=== PATIENT | male | born 1960 | race Caucasian/White ===

== ENCOUNTER 2022-11-13 06:07 | Observation (INO) ==
--- NOTE | 2022-10-14 14:40 | PAT Medication Instructions ---
Medication Instructions Date of Service October 14, 2022 Home Medications acetaminophen 500 mg tablet 500 mg PO Q6H atorvastatin 40 mg tablet 40 mg PO HS gabapentin 300 mg capsule 300 mg PO TID tadalafil 5 mg tablet 5 mg PO DAILY PRN Erectile Dysfunction DO NOT take the morning of surgery tadalafil 5 mg tablet 5 mg PO DAILY PRN Erectile Dysfunction Take morning of surgery With a small sip of water, OTHERWISE NOTHING TO EAT OR DRINK AFTER MIDNIGHT: acetaminophen 500 mg tablet 500 mg PO Q6H (if needed) gabapentin 300 mg capsule 300 mg PO TID Take evening before surgery acetaminophen 500 mg tablet 500 mg PO Q6H (if needed) atorvastatin 40 mg tablet 40 mg PO HS gabapentin 300 mg capsule 300 mg PO TID Other Notes If you have any questions please call us at [phone] or [phone] or [phone] or [phone]
--- NOTE | 2022-10-31 11:48 | Anesthesiology Consultation ---
Date of Service October 31, 2022 Assessment & Plan (1) Encounter for pre-operative examination: - COVID screening: Per assessment on 10/31: No known COVID-19 positive contacts or current COVID-19 related symptoms. Travel screen negative. Patient vaccinated. At surgeon discretion if preop Covid testing being done. - Preop CXR: CXR done 10/31/22 showed "a 7 mm nodular density within the left midlung zone is likely due to the overlapping ribs. Follow-up shallow oblique views of the chest are recommended to exclude the less likely possibility of a pulmonary nodule. This report was called/faxed to the referring physician following dictation." Per Lisset at surgeon's office, their office will have follow-up xray imaging done at [facility] in near future- awaiting x-ray report. Chart Review Chart Review: Patient seen in Pre Admission Testing Teaching & Discussion Pre-Anesthesia Teaching/Discussion Notes: Instructed NPO after midnight before surgery,except medications with 15 cc of water. Medication instructions provided according to the PAT guidelines. History Surgery Operation Date: 11/13/22 07:45 Proposed Procedures p C6-C7 Anterior Cervical Discectomy and Fusion, Spinal Cord Monitoring - Devante Bobo DO Height/Weight Height: 6 ft Weight: 97.522 kg Allergies Allergy/AdvReac Type Severity Reaction Status Date / Time Iodinated Contrast Media Allergy Mild Rash Verified 10/06/22 13:41 P-phenylenediamine Allergy Mild Rash Uncoded 10/06/22 13:43 Medications Home Medications Medication Instructions Recorded Confirmed Last Taken acetaminophen 500 mg tablet 500 mg PO Q6H 10/06/22 10/06/22 Unknown atorvastatin 40 mg tablet 40 mg PO HS 10/06/22 10/06/22 Unknown tadalafil 5 mg tablet 5 mg PO DAILY PRN Erectile 10/06/22 10/06/22 Unknown Dysfunction Past Medical History Medical History Hyperlipidemia Neuropathy LUE + fingers Exercise / Class Metabolic Activity II 4-5 Yardwork/Stairs/Walk up hill Past Surgical History Surgical History History of cholecystectomy History of colonoscopy Hx of cervical spine surgery + hardware Past Anesthesia History No Hx of Anesthesia Complications and No Family Hx of Anesthesia Complications History of PONV No Hx of PONV and No Hx of Motion Sickness Social History Smoking Status: Light tobacco smoker tobacco type: cigars Do You Dip or Chew Tobacco: No Hx Alcohol Use: Yes Alcohol type: beer alcohol intake frequency: a few times a week Hx Substance Use: No substance use type: does not use Review of Systems Patient denies chest pain, shortness of breath, dyspnea on exertion, fever, chills, cough, wheezing, palpitations. Physical Exam Vital Signs VITALS BP 115/75 P 68 TEMP 98.2 SP02 97%RA RESP 16 PHYSICAL Full cervical extension range of motion. Full TMJ range of motion. TMD 3.5 finger breaths Mallampati Score 2 Dentition: upper partial Lungs: clear throughout to auscultation Cardiac: regular rate and rhythm, no murmurs noted Spine: normal Carotid arteries: negative bruit Extremities: no edema Lab Results Anesthesia Preop Results Results Anesthesia Widget: WBC 7.15 K/ul (4.8-10.8) 10/31/22 Hgb 15.5 g/dl (14.0-18.0) 10/31/22 Hct 45.2 % (42.0-52.0) 10/31/22 Plt 225 K/uL (130-400) 10/31/22 Na 139 mmol/L (136-145) 10/31/22 K 3.8 mmol/L (3.5-5.1) 10/31/22 Cl 108 mmol/L (98-107) H 10/31/22 CO2 24 mmol/L (21-32) 10/31/22 BUN 17 mg/dl (6-23) 10/31/22 Creat 0.86 mg/dl (0.6-1.4) 10/31/22 Glucose Level 99 mg/dl (70-99(Fasting)) 10/31/22 PT 11.4 Seconds (9.0-12.0) 10/31/22 PTT 27.9 Seconds (21.0-31.0) 10/31/22 INR 1.1 (0.9-1.1) 10/31/22 Urine Color Yellow 10/31/22 Urine Appearance Clear (Clear) 10/31/22 Urine pH 5.0 (4.5-7.5) 10/31/22 Urine Specific [place] 1.023 (1.000-1.030) 10/31/22 Urine Protein Negative (Negative) 10/31/22 Urine Glucose (UA) Negative (Negative) 10/31/22 Urine Ketones Trace (Negative) H 10/31/22 Urine Blood Negative (Negative) 10/31/22 Urine Nitrite Negative (Negative) 10/31/22 Urine Bilirubin Negative (Negative) 10/31/22 Urine Urobilinogen Negative (Negative) 10/31/22 Urine Leukocyte Esterase Negative (Negative) 10/31/22 Blood Type O Positive 10/31/22 Antibody Screen NEGATIVE 10/31/22 Testing Electrocardiogram Date: 10/31/22 Findings: + SB @ (58) Chest X-Ray Date: 10/31/22 FINDINGS: No pneumothorax. No pleural effusions. The cardiac silhouette is top normal in size. There are calcifications within the aortic knob. No focal lung consolidations to suggest a pneumonia. No evidence for pulmonary edema. A 1.4 cm linear density at the right lung apex is likely external to the patient. A 7 mm nodular density within the left midlung zone is not confirmed on the lateral view. This may be associated with the overlying ribs. IMPRESSION: A 7 mm nodular density within the left midlung zone is likely due to the overlapping ribs. Follow-up shallow oblique views of the chest are recommended to exclude the less likely possibility of a pulmonary nodule. This report was called/faxed to the referring physician following dictation. COVID-19 Risk Screen Screening Information COVID-19 Screen Date: 10/31/22 Exposure 21 Days Family/Household +COVID Last 21 Days: No Exposure 10 Days Any COVID Exposure Last 10 Days: No Symptoms Last 10 Days Experienced COVID Sx Last 10 Days: No + COVID 0-90 Days COVID + in Last 0-90 Days: No
[~2022-11-13 06:07] MED LIST: ACETAMINOPHEN 500 MG TAB PO SCH; CeleBREX 200 MG CAP PO SCH; GABAPENTIN 600 MG DOSE PO SCH; LR 15ML/HR IV SCH; ceFAZolin 2000MG 2,000 MG/15 ML SYR IV SCH
[2022-11-13] MEDS ORDERED: BUPIVACAINE/EPINEPHRINE 0.25% 1:200,000 30 ML VIAL ONE (07:03)
[2022-11-13] MEDS ORDERED: ceFAZolin 330 MG/ML 1 GM VIAL ONE (07:04)
[2022-11-13] MEDS ORDERED: ROCURONIUM BROMIDE 10 MG/ML 5 ML VIAL IV ONE (07:13)
[2022-11-13] MEDS ORDERED: LIDOCAINE 2% MPF LOCAL 5 ML VIAL ONE (07:13)
[2022-11-13] MEDS ORDERED: ONDANSETRON INJ 2 MG/ML 2 ML VIAL ONE (07:13)
[2022-11-13] MEDS ORDERED: PROPOFOL IV EMULSION 10 MG/ML 20 ML VIAL IV ONE (07:13)
[2022-11-13] MEDS ORDERED: DEXAMETHASONE SOD INJ 4 MG/ML VIAL ONE (07:13)
[2022-11-13] MEDS ORDERED: MIDAZOLAM HCL 1 MG/ML 2ML VIAL ONE (07:14)
[2022-11-13] MEDS ORDERED: fentaNYL citrate PF 100 MCG/2 ML VIAL ONE (07:14)
--- NOTE | 2022-11-13 07:39 | History & Physical Bridge Note ---
Date of Service November 13, 2022 History & Physical Bridge Note I have examined the patient, reviewed the History & Physical and in the interval since the performance of the History & Physical I have noted the following changes of clinical significance: no changes noted
--- NOTE | 2022-11-13 07:42 | History & Physical Report ---
Date of Service November 13, 2022 Assessment & Plan (1) Cervical stenosis of spinal canal: Plan: C6-C7 anterior cervical discectomy and fusion History of Present Illness Chief Complaint: Neck and arm pain Primary Care Provider: Vandana Castro DO This is a 58-year-old male who presents with chronic persistent neck and arm symptoms after failing course of nonoperative care is here for surgical invention. Allergies Allergy/AdvReac Type Severity Reaction Status Date / Time Iodinated Contrast Media Allergy Mild Rash, Verified 11/13/22 06:54 sweats, nausea, lightheaded P-phenylenediamine Allergy Mild Rash Uncoded 11/13/22 06:54 Home Medications Medication Instructions Recorded Confirmed Type acetaminophen 500 mg tablet 500 mg PO Q6H 10/06/22 11/13/22 History atorvastatin 40 mg tablet 40 mg PO HS 10/06/22 11/13/22 History tadalafil 5 mg tablet 5 mg PO DAILY PRN Erectile 10/06/22 11/13/22 History Dysfunction Past Med/Surg History Medical History Hyperlipidemia Neuropathy LUE + fingers Surgical History History of cholecystectomy History of colonoscopy Hx of cervical spine surgery + hardware Social History Smoking Status: Light tobacco smoker Second Hand Exposure: No; Do You Dip or Chew Tobacco: No; Tobacco Cessation Education Requested by Patient: No Hx Alcohol Use: Yes Alcohol type: beer Hx Substance Use: No Preferred Language: Taiwanese Communication Ability: Effective 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
[2022-11-13] MEDS ORDERED: fentaNYL citrate PF 100 MCG/2 ML VIAL IV PRN (08:05)
[2022-11-13] MEDS ORDERED: ONDANSETRON INJ 2 MG/ML 2 ML VIAL IV PRN ×2 (08:05→11:33)
[2022-11-13] MEDS ORDERED: PROMETHAZINE HCL 12.5 MG in SODIUM CHLORIDE 0.9% 50 ML IV PRN ×2 (08:05→11:33)
[2022-11-13] MEDS ORDERED: ePHEDrine sulfate 50 MG/ML AMP IV PRN (08:05)
[2022-11-13] MEDS ORDERED: ATROPINE SULFATE 0.1 MG/ML 10ML SYR IV PRN (08:05)
[2022-11-13] MEDS ORDERED: NALOXONE HCL 0.4 MG/1 ML VIAL/CARP IV PRN ×2 (08:05→11:33)
[2022-11-13] MEDS ORDERED: REMIFENTANIL HCL 1 MG VIAL IV ONE (08:20)
[2022-11-13] MEDS ORDERED: KETAMINE 50 MG/5 ML SYRINGE ONE (08:23)
[2022-11-13] MEDS ORDERED: FLOSEAL HEMOSTATIC MATRIX 10ML TOP ONE (08:29)
[2022-11-13] MEDS ORDERED: SUCCINYLCHOLINE CHLORIDE 20 MG/ML 10 ML VIAL IV ONE (08:36)
[2022-11-13] MEDS ORDERED: SUGAMMADEX SODIUM 200 MG/2 ML VIAL IV ONE (08:44)
--- NOTE | 2022-11-13 08:57 | Operative Report ---
Post Operative Report Pre & Post Diagnosis Operation Date: 11/13/22 07:45 Pre-Op Diagnosis: Cervical radiculopathy Post-Op Diagnosis: Same I identified the patient and participated in the time-out.: Yes Procedure Operation Date: 11/13/22 07:45 Actual Procedures #1 anterior cervical discectomy with bilateral foraminotomies C6-C7. #2 anterior cervical disc at C6-C7. #3 placement of Spira 7 mm cage filled with I factor C6-C7. #4 placement of K2 M plate and screws across C6-C7. Surgeon Devante Bobo, Manager Animation Coleen Galvan Estimated Blood Loss 10 Findings Consistent with Post-Op Diagnosis Specimens None Indications This is a 62-year-old male who presents with above-mentioned diagnosis after failed extensive course of nonoperative care is here for the above-mentioned procedure. Description of Procedure Patient was met with identified informed consent obtained. 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 All bony prominences well-padded eyes inspected to ensure no external pressure placed upon the. This point the anterior cervical spine was prepped and draped in a sterile fashion. With the assistance of fluoroscopy identified the C6-C7 level and a transverse incision was placed overlying this region. Blunt dissection with the assistance of Bovie cautery to form down to and exposing the anterior cervical spine from C6-C7. A self-retaining retractors placed. Then performed a complete discectomy of C6-C7 out to the uncovertebral joints bilaterally. Gilberts distracting pins were utilized to assist in visualization. Removed all posterior annular fibers longitudinal ligament bilateral foraminotomies performed. Endplates burred to subcortical bleeding bone and a 7 mm Spira cage filled with I factor tapped in position. Distracting apparatus was removed and a K2 M plate and screws applied with the assistance of fluoroscopy. The incision was then copiously irrigated explored to ensure no damage to surrounding structures or remaining bleeding. 10 round MIA drain inserted. The incision was then closed with 2 Vicryl in the fascia and 4 Monocryl for final skin closure. Steri-Strips and sterile dressing placed. Patient awakened and taken to PACU in stable condition. Please note spinal cord monitoring was utilized at the procedure no changes noted. Lastly Coleen Galvan was present at the entire surgeon while the patient positioning complex portion of the surgery and final skin closure. I attest to the content of the Intraoperative Record and any orders documented therein. Any exceptions are noted below.
[2022-11-13] MEDS: HYDROmorphone INJ 1 MG/ML SYRINGE IV PRN ×8 (09:30→10:20)
--- NOTE | 2022-11-13 09:49 | Fluoroscopy Report ---
FL cervical 2-3V CLINICAL HISTORY: ACDF C6-C7 COMPARISON STUDY: None. FLUOROSCOPY TIME: 21 seconds FLUOROSCOPY IMAGES: 3 Ka,r: 7.9 mGy FINDINGS: Difficult evaluation of the cervical spine levels due to the patient's overlapping shoulder s. There is anterior cervical discectomy and fusion at the lower cervical spine. The exact location i s difficult to assess on this study but could be at C6-C7 or C7-T1. Prior ACDF within the upper cervi ludivina spine is noted. The endotracheal tube is partially visualized. Surgical sponge anterior to the lo wer cervical ACDF is also noted. IMPRESSION: There is anterior cervical discectomy and fusion at the lower cervical spine. The exact l ocation is difficult to assess on this study but could be at C6-C7 or C7-T1. Please correlate with th e operative report. This report was called/faxed to the surgeon following dictation. ACT 112: Negative or not required by law. Electronically signed by: Zi Goodman M.D. 11/13/2022 9:47 AM
--- NOTE | 2022-11-13 10:27 | Anesthesiology Progress Note ---
Date of Service November 13, 2022 Anesthesia Post Procedure Vital Signs Vital Signs: Temp Pulse Resp BP Pulse Ox O2 Del Method O2 Flow Rate 11/13/22 10:20 67 17 150/98 H 98 Nasal Cannula 2 11/13/22 10:10 36.6 C 59 L 14 151/97 H 97 Nasal Cannula 2 11/13/22 10:00 61 16 148/96 H 95 Nasal Cannula 2 11/13/22 09:50 65 15 158/95 H 92 Room Air 11/13/22 09:40 71 12 160/106 H 92 Room Air 11/13/22 09:30 72 15 163/103 H 94 Room Air 11/13/22 09:20 77 15 148/105 H 95 Room Air 11/13/22 09:14 36.2 C L 95 H 21 160/106 H 97 Room Air 11/13/22 06:56 37 C 60 18 146/86 H 96 Room Air Pain Intensity Posterior Neck: Pain Intensity: 4 Transfer of Care Handoff Completed per policy Notes Mental Status: alert / awake / arousable Patient Amnestic to Procedure: Yes Nausea / Vomiting: adequately controlled Pain: adequately controlled Airway Patency, RR, SpO2: stable & adequate BP & HR: stable & adequate Hydration State: stable & adequate Anesthetic Complications: no major complications apparent
[2022-11-13] MEDS ORDERED: hydrOXYzine HCl 25 MG TAB PO PRN (11:33)
[2022-11-13] MEDS ORDERED: ONDANSETRON 4 MG OD TAB PO PRN (11:33)
[2022-11-13] MEDS ORDERED: bisacodyL 10 MG SUPP PR PRN (11:33)
[2022-11-13] MEDS ORDERED: LORazepam 2 MG/1 ML VIAL IV PRN (11:33)
[2022-11-13] MEDS ORDERED: ALUMINUM/MAGNESIUM SUSP 30 ML UDC PO PRN (11:33)
[2022-11-13] MEDS ORDERED: ACETAMINOPHEN 500 MG TAB PO PRN (11:33)
[2022-11-13] MEDS ORDERED: diphenhydrAMINE Capsule 25 MG CAP PO PRN (11:33)
[2022-11-13] MEDS ORDERED: HYDROmorphone INJ 1 MG/ML SYRINGE IV PRN (11:33)
[2022-11-13] MEDS ORDERED: RACEPINEPHRINE 2.25% NEBU SOLN 0.5 ML VIAL INH PRN (11:33)
[2022-11-13] MEDS ORDERED: LORazepam 0.5 MG TAB PO PRN (11:33)
[2022-11-13] MEDS ORDERED: dexAMETHasone 8 MG in SYRINGE 0 ML IV PRN (11:33)
[2022-11-13] MEDS ORDERED: traMADol HCL 50 MG TABLET PO PRN (11:33)
[2022-11-13] MEDS ORDERED: SOD PHOSPHATE/SOD BIPHOSPHATE ENEMA 132 ML BTL PR PRN (11:33)
[2022-11-13] MEDS ORDERED: FAMOTIDINE 20 MG TAB PO PRN (11:33)
[2022-11-13] MEDS ORDERED: DO NOT ADMINISTER PNEUMOCOCCAL VACCINE PRN (11:33)
[2022-11-13] MEDS ORDERED: DO NOT ADMINISTER FLU VACCINE PRN (11:33)
[2022-11-13] MEDS ORDERED: HYDROmorphone INJ 0.5 MG/0.5 ML SYR IV PRN (11:33)
[2022-11-13] MEDS ORDERED: MAGNESIUM HYDROXIDE SUSP 30 ML UDC PO PRN (11:33)
[2022-11-13] MEDS ORDERED: METOCLOPRAMIDE HCL INJ 5 MG/ML 2 ML VIAL IV PRN (11:33)
[2022-11-13] MEDS ORDERED: ACETAMINOPHEN 1,000 MG/100 ML VIAL IV PRN (11:33)
[2022-11-13] MEDS: LACTATED RINGER'S 1,000 ML IV SCH ×2 (12:11→19:12)
--- NOTE | 2022-11-13 12:17 | Hospitalist Consultation ---
Date of Consultation November 13, 2022 Assessment & Plan (1) S/P spinal surgery: This is a 62yo M with a PMH of prediabetes, hyperlipidemia, BPH and other medical problems listed below who is POD#0 s/p anterior cervical discectomy with bilateral foraminotomies C6-C7 by Dr. Bobo. POD#0 s/p anterior cervical discectomy with bilateral foraminotomies C6-C7 by Dr. Bobo Per ortho for pain control, wound care, anticoagulation and activities Monitor H&H (preop hgb 15.5, EBL 10ml), continue incentive spirometry, PT/OT when appropriate (2) Hyperlipidemia: Continue statin (3) Prediabetes: A1c 6.1 in October 2022, losing weight with diet and exercise, carb consistent diet (4) BPH (benign prostatic hyperplasia): Asymptomatic, following with urology and not taking any medications at this time PCP: Gloria ([facility]) Dispo: Per primary service Patient seen in collaboration with Dr. Jon. Please see addendum. I spent a total of 45 minutes coordinating, documenting, and providing care for this patient excluding time spent in the performance of separately billed services. Supervising Physician Co-Signing Physician Notes Patient was seen and examined independently. Chart reviewed. Case discussed with FEI. Patient also noted to have elevated blood pressures, per nursing patient with controlled pain. No prior history of hypertension and not on anti hypertensives. Will order PRN hydralazine for now and monitor. May need initiation of antihypertensives. History of Present Illness Reason for Consultation: post op med mgmt Attending Physician: Devante Bobo, DO History of Present Illness This is a 62yo M with a PMH of prediabetes, hyperlipidemia, BPH and other medical problems listed below who is POD#0 s/p anterior cervical discectomy with bilateral foraminotomies C6-C7 by Dr. Bobo. Patient is feeling well postoperatively. Minimal surgical site discomfort. Denies any paresthesias or pain in bilateral upper extremities. Ambulating in the halls without issue. Tolerated liquid diet for lunch without issue. No fever, chills, lightheadedness, chest pain, shortness of breath, nausea, vomiting, abdominal pain, dysuria. Has not yet urinated postoperatively. Follows with primary care in [facility]. Allergies Allergy/AdvReac Type Severity Reaction Status Date / Time Iodinated Contrast Media Allergy Mild Rash, Verified 11/13/22 06:54 sweats, nausea, lightheaded P-phenylenediamine Allergy Mild Rash Uncoded 11/13/22 06:54 Home Medications Medication Instructions Recorded Confirmed Type acetaminophen 500 mg tablet 500 mg PO Q6H 10/06/22 11/13/22 History atorvastatin 40 mg tablet 40 mg PO HS 10/06/22 11/13/22 History tadalafil 5 mg tablet 5 mg PO DAILY PRN Erectile 10/06/22 11/13/22 History Dysfunction oxycodone 5 mg tablet 5 mg PO DAILY PRN pain #30 tabs 11/13/22 Rx tramadol 50 mg tablet 50 mg PO Q6H PRN pain, moderate 11/13/22 Rx #30 tabs Patient History Medical History BPH (benign prostatic hyperplasia) Hyperlipidemia Neuropathy LUE + fingers Prediabetes Surgical History History of cholecystectomy History of colonoscopy Hx of cervical spine surgery + hardware Family History Other Diabetes Social History (Updated 11/13/22 @ 13:09 by Marialuisa Brownlee PA-C) Smoking Status: Light tobacco smoker Tobacco Type: Cigars Cigarettes Per Day: 1 cigar daily; Second Hand Exposure: No; Do You Dip or Chew Tobacco: No; Tobacco Cessation Education Requested by Patient: No Hx Alcohol Use: Yes Alcohol type: beer Alcohol Intake Frequency: 2-3 x/Week Hx Substance Use: No Preferred Language: Trinidadian Communication Ability: Effective 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 Physical Exam Physical Exam: Gen: WD/WN, NAD, sitting in bedside chair but seen ambulating with a walker as well, A&Ox3 HEENT: Normocephalic, atraumatic, conjunctivae moist, sclerae anicteric, mucous membranes moist. + Anterior cervical dressing c/d/i, MIA drain without output Lung: Clear to Auscultation bilaterally, no wheezes/rales/rhonchi Heart: Regular rate, regular rhythm, no murmurs, rubs, or gallops Abdomen: Soft, NT, ND +BS x 4 Extremities: no edema Skin: Warm, no rash Results & Data Results & Data Vital Signs (Past 12 Hours) Vital Signs Temp Pulse Pulse Resp BP Pulse Ox O2 Del Method 11/13/22 12:02 36.7 C 52 L 16 149/83 H 93 Room Air 11/13/22 11:12 56 L 16 98 Nasal Cannula 11/13/22 11:30 36.4 C L 58 L 18 166/97 H 96 Room Air 11/13/22 11:15 Nasal Cannula 11/13/22 10:59 36.7 C 61 18 151/93 H 97 Nasal Cannula 11/13/22 10:30 60 15 140/94 98 Nasal Cannula 11/13/22 10:20 67 17 150/98 H 98 Nasal Cannula 11/13/22 10:10 36.6 C 59 L 14 151/97 H 97 Nasal Cannula 11/13/22 10:00 61 16 148/96 H 95 Nasal Cannula 11/13/22 09:50 65 15 158/95 H 92 Room Air 11/13/22 09:40 71 12 160/106 H 92 Room Air 11/13/22 09:30 72 15 163/103 H 94 Room Air 11/13/22 09:20 77 15 148/105 H 95 Room Air 11/13/22 09:14 36.2 C L 95 H 21 160/106 H 97 Room Air 11/13/22 06:56 37 C 60 18 146/86 H 96 Room Air O2 Flow Rate 11/13/22 12:02 11/13/22 11:12 2 11/13/22 11:30 11/13/22 11:15 1 11/13/22 10:59 1 11/13/22 10:30 2 11/13/22 10:20 2 11/13/22 10:10 2 11/13/22 10:00 2 11/13/22 09:50 11/13/22 09:40 11/13/22 09:30 11/13/22 09:20 11/13/22 09:14 11/13/22 06:56 Laboratory Results pre-op hgb 15.5 Diagnostic Findings Cervical Spine X-Ray 11/13/22 07:45 FL cervical 2-3V CLINICAL HISTORY: ACDF C6-C7 COMPARISON STUDY: None. FLUOROSCOPY TIME: 21 seconds FLUOROSCOPY IMAGES: 3 Ka,r: 7.9 mGy FINDINGS: Difficult evaluation of the cervical spine levels due to the patient's overlapping shoulders. There is anterior cervical discectomy and fusion at the lower cervical spine. The exact location is difficult to assess on this study but could be at C6-C7 or C7-T1. Prior ACDF within the upper cervical spine is noted. The endotracheal tube is partially visualized. Surgical sponge anterior to the lower cervical ACDF is also noted. IMPRESSION: There is anterior cervical discectomy and fusion at the lower cervical spine. The exact location is difficult to assess on this study but could be at C6-C7 or C7-T1. Please correlate with the operative report. This report was called/faxed to the surgeon following dictation. ACT 112: Negative or not required by law. Electronically signed by: Zi Goodman M.D. 11/13/2022 9:47 AM
[2022-11-13] MEDS: dexAMETHasone 6 MG in SYRINGE 0 ML IV SCH (13:35)
[2022-11-13] MEDS: ceFAZolin 2000MG 2,000 MG/15 ML SYR IV SCH ×2 (14:29→22:12)
[2022-11-13] MEDS: oxyCODONE HCL IR 5 MG TAB (IMMEDIATE RELEASE) PO PRN ×2 (17:51→22:12)
[2022-11-13] MEDS ORDERED: hydrALAZINE HCL 20 MG/ML VIAL IV ONE (18:39)
[2022-11-13] MEDS ORDERED: hydrALAZINE HCL 20 MG/ML VIAL IV PRN (20:53)
[2022-11-13] MEDS ORDERED: DOCUSATE SODIUM/SENNA 50/8.6MG TAB PO SCH (21:00)
[2022-11-13] MEDS ORDERED: ATORVASTATIN 40 MG TAB PO SCH (21:00)
[2022-11-14] MEDS: LACTATED RINGER'S 1,000 ML IV SCH (01:25)
[2022-11-14] MEDS ORDERED: POLYETHYLENE (MIRALAX) 17 GM PACK PO SCH (06:00)
--- NOTE | 2022-11-14 08:37 | Discharge Summary ---
Date of Service November 14, 2022 Admission HPI Per Admitting Provider This is a 58-year-old male who presents with chronic persistent neck and arm symptoms after failing course of nonoperative care is here for surgical invention. Admission Exam (Per Admitting) Constitutional WD/WN, vitals as above Eyes normal visual gonzalez by confrontation ENMT external ear and nose normal, oropharynx normal Neck normal visual inspection Right anterior cervical scar noted Limited range of motion of cervical spine with flexion and extension Respiratory normal respiratory effort Cardiovascular Extremities: normal capillary refill Gastrointestinal (Abdomen) normal bowel sounds, soft, nontender, no hepatosplenomegaly Musculoskeletal Spine: + limited cervical ROM and + pain with cervical ROM Extremities: extremities normal to inspection Skin no rashes, warm and dry Neurologic normal touch/pain/proprioception and moves all extremities Psychiatric A+Ox3, euthymic affect Eye Contact: good eye contact Discharge Data Consultations 11/13/22 11:33 Consult Hospitalist Routine Procedures Performed Operation Date: 11/13/22 07:45 Actual Procedures p C6-C7 Anterior Cervical Discectomy and Fusion, Spinal Cord Monitoring(Not Applicable) - Devante Bobo DO Hospital Course (1) Cervical stenosis of spinal canal: Discharge Instructions Patient is being discharged home on postoperative day 1 status post ACDF the C6- 7 level. He has had an uneventful evening. Arm symptoms improved. He is up and ambulatory to the restroom.
[2022-11-14] MEDS: dexAMETHasone 6 MG in SYRINGE 0 ML IV SCH (08:50)
--- NOTE | 2022-11-14 14:57 | Hospitalist Progress Note ---
Date of Service November 14, 2022 Assessment & Plan (1) S/P spinal surgery: Plan: This is a 62yo M with a PMH of prediabetes, hyperlipidemia, BPH and other medical problems listed below who is POD#0 s/p anterior cervical discectomy with bilateral foraminotomies C6-C7 by Dr. Bobo. POD#1 s/p anterior cervical discectomy with bilateral foraminotomies C6-C7 by Dr. Bobo Per ortho for pain control, wound care, anticoagulation and activities continue incentive spirometry (2) Hyperlipidemia: Plan: Continue statin (3) Prediabetes: Plan: A1c 6.1 in October 2022, losing weight with diet and exercise, carb consistent diet (4) BPH (benign prostatic hyperplasia): Plan: Asymptomatic, following with urology and not taking any medications at this time Patient to follow-up with his primary care doctor. PCP: Gloria (Jeancarlos Salter) Dispo: Per primary service Admission and Anticipated Discharge Date Admission Date: November 13, 2022 Subjective Patient seen and examined at bedside. Is comfortably sitting up on the chair; not in any distress. Denies any fever, chills, chest pain or shortness of breath. Review of Systems Review of Systems: All systems reviewed & are unremarkable except as noted in Subjective Physical Exam Physical Exam: Gen: WD/WN, NAD, sitting in bedside chair but seen ambulating with a walker as well, A&Ox3 HEENT: Normocephalic, atraumatic, conjunctivae moist, sclerae anicteric, mucous membranes moist. + Anterior cervical dressing c/d/i. Lung: Clear to Auscultation bilaterally, no wheezes/rales/rhonchi Heart: Regular rate, regular rhythm, no murmurs, rubs, or gallops Abdomen: Soft, NT, ND +BS x 4 Extremities: no edema Skin: Warm, no rash Results & Data Results & Data Vital Signs (Past 12 Hours) Vital Signs Temp Pulse Pulse Resp BP Pulse Ox O2 Del Method 11/14/22 09:14 36.6 C 56 L 60 18 157/82 H 97 11/14/22 07:28 56 L 18 97 Room Air 11/14/22 07:23 36.6 C 60 18 157/82 H 96 Room Air 11/14/22 06:56 36.8 C 55 L 18 155/86 H 98 Room Air 11/14/22 05:18 36.5 C 63 16 156/80 H 96 Room Air 11/14/22 03:27 61 18 94 Room Air 11/14/22 03:07 36.6 C 60 14 143/77 H 97 Room Air Laboratory Results Laboratory Results POC Glucose 169 mg/dl (70-99) H 11/13/22 18:27 SARS-CoV-2, RNA, NAAT NEGATIVE (NEGATIVE) 11/13/22 06:32 Impressions Cervical Spine X-Ray 11/13/22 07:45 FL cervical 2-3V CLINICAL HISTORY: ACDF C6-C7 COMPARISON STUDY: None. FLUOROSCOPY TIME: 21 seconds FLUOROSCOPY IMAGES: 3 Ka,r: 7.9 mGy FINDINGS: Difficult evaluation of the cervical spine levels due to the patient's overlapping shoulders. There is anterior cervical discectomy and fusion at the lower cervical spine. The exact location is difficult to assess on this study but could be at C6-C7 or C7-T1. Prior ACDF within the upper cervical spine is noted. The endotracheal tube is partially visualized. Surgical sponge anterior to the lower cervical ACDF is also noted. IMPRESSION: There is anterior cervical discectomy and fusion at the lower cervical spine. The exact location is difficult to assess on this study but could be at C6-C7 or C7-T1. Please correlate with the operative report. This report was called/faxed to the surgeon following dictation. ACT 112: Negative or not required by law. Electronically signed by: Zi Goodman M.D. 11/13/2022 9:47 AM
== END 2022-11-14 11:17 | disposition home or self-care (01) ==
LOC: 3E 06:07 → ASU 06:07